=== PATIENT | female | born 1975 | race Caucasian/White ===

== ENCOUNTER → 2020-03-25 | Outpatient (CLI) | payer OTHER ==
--- NOTE | 2020-03-25 15:43 | PFTRPT ---
Height: 62.00 Inches Weight: 150.00 Lbs BSA: 1.69 Diagnosis: R06.02 DATE: 03/25/2020 ORDERING PHYSICIAN: Dr. Brenna Maldonado Pre and post bronchodilator studies have excellent technical quality. Forced vital capacity is normal. FEV1 is in proportion. Obstructive index is therefore normal. Expiratory limit of the flow-volume loop is normal. No significant bronchodilator response is identified. Total lung capacity is normal. Residual volume is in proportion. Diffusing capacity is normal. Airway resistance and conductance are normal. IMPRESSION: Normal study. MTDD
== END ==
LOC: M CARPUL 12:54
PROVIDERS: ATTEND Student in an Organized Health Care Education/Training Program
DX: R06.02 Shortness of breath (principal)

== ENCOUNTER → 2020-04-08 | Outpatient (CLI) | payer OTHER ==
[~2020-04-08] MED LIST: METHACHOLINE KIT (J7674) INH ONE
--- NOTE | 2020-04-08 09:38 | PFTRPT ---
Height: 62.00 Inches Weight: 150.00 Lbs BSA: 1.69 Diagnosis: R06.02 DATE: 04/08/2020 ORDERED BY: JOHN CAI M.D. QUALITY: Study of excellent technical quality. PROCEDURE: Under protocol, methacholine was administered. Even after a maximal dose of 25 mg or 188.875 CDUs, no provocation dose ever achieved. IMPRESSION: Negative methacholine challenge study. MTDD
== END ==
LOC: M CARPUL 08:43
PROVIDERS: ATTEND Student in an Organized Health Care Education/Training Program
DX: R06.02 Shortness of breath (principal)
CPT/HCPCS: 94070; J7674